=== PATIENT | male | born 1985 ===

== ENCOUNTER 2021-09-25 18:19 | Emergency (ER) | payer MEDICAID ==
[2021-09-25 20:19] LABS: BASOPHIL 0.4 % (0-2); EOSINOPHIL 0.1 % (0-5); HCT 45.4 % (42.0-52.0); HGB 15.4 g/dl (13.2-18.0); LYMPHOCYTE 12.7 % (15-48); MCH 29.7 pg (25.0-31.0); MCHC 33.9 g/dL (32.0-36.0); MCV 87.5 fL (78.0-100.0); MONOCYTE 5.1 % (0-12); MPV 8.6 fL (6.0-9.5); NEUTROPHIL 81.3 % (41-80); NRBC 0; PLT 313 K/uL (150-400); RBC 5.19 M/uL (4.70-6.00); RDW 12.8 % (11.5-14.0); WBC 10.1 K/uL (4.0-10.5)
[2021-09-25 20:32] LABS: AMPHETAMINES NEGATIVE (NEGATIVE); BARBITURATES NEGATIVE (NEGATIVE); ECSTASY (MDMA) NEGATIVE (NEGATIVE); MARIJUANA (THC) NEGATIVE (NEGATIVE); METHADONE NEGATIVE (NEGATIVE); OPIATES NEGATIVE (NEGATIVE); OXYCODONE NEGATIVE (NEGATIVE)
[2021-09-25 20:39] LABS: ACETAMINOPHEN (TYLENOL) < 2.0 ug/mL (10.0-30.0); ALBUMIN 3.6 g/dL (3.4-5.0); ALKALINE PHOSHATASE 88 U/L (46-116); ALT 35 U/L (16-63); AST 24 U/L (15-37); BILIRUBIN - TOTAL 0.4 mg/dL (0.2-1.0); BUN 13 mg/dL (7-18); BUN/CREAT RATIO (CALC) 18.3 RATIO; CHLORIDE 103 mmol/L (98-107); CO2 (BICARBONATE) 25 mmol/L (21-32); CREATININE 0.71 mg/dL (0.67-1.17); GLOBULIN (CALCULATION) 3.7 g/dL; GLUCOSE 127 mg/dL (74-106); POTASSIUM 3.9 mmol/L (3.5-5.1); TOTAL PROTEIN 7.3 g/dL (6.4-8.2)
[2021-09-25] MEDS ORDERED: CLONIDINE HCL0.1 MG PO (21:10)
[2021-09-25] MEDS ORDERED: ONDANSETRON ODT4 MG PO (21:10)
== END 2021-09-25 21:27 | disposition home or self-care (01) ==
LOC: FER 18:19
PROVIDERS: Internal Medicine
DX: F11.13 Opioid abuse with withdrawal (principal); F17.210 Nicotine dependence, cigarettes, uncomplicated; Z20.822 Contact with and (suspected) exposure to COVID-19; Z28.310 Unvaccinated for COVID-19
CPT/HCPCS: 36415; 80053; 80305; 85025; G0480; J2550; U0002